=== PATIENT | male | born 1970 | race Two or more races ===

== ENCOUNTER 2019-09-13 21:41 | Emergency (ER) | payer MEDICAID ==
[~2019-09-13] VITALS: Ht 172.7 cm; Wt 108.9 kg
[2019-09-13] MEDS ORDERED: METFORMIN HCL500 M1 ORAL (21:54)
[2019-09-13] MEDS ORDERED: VALACYCLOVIR500 MG ORAL (22:03)
[2019-09-13] MEDS ORDERED: PREDNISONE20 MG ORAL (22:03)
--- NOTE | 2019-09-13 22:03 | Emergency Room Report ---
History of Present Illness General Chief Complaint: General Complaint Source: Patient Present Illness HPI Is a 49-year-old male with a history of diabetes. He presents with chief complaint of right facial drooping. Started yesterday. No pain. No focal deficit. No slurred speech. Similar symptom couple years ago on the left side. It resolved completely. He denies any other complaint. Nothing made it better. Nothing made it worse. Allergies: Coded Allergies: No Known Allergies (Unverified , 09/13/19) Patient History Past Medical History: see triage record, old chart reviewed, DM Past Surgical History: none Pertinent Family History: none Social History: Denies: smoking Immunizations: other Reviewed Nursing Documentation: PMH: Agreed; PSxH: Agreed Nursing Documentation-PMH Past Medical History: No History, Except For Hx Diabetes: Yes Review of Systems Eye: Denies: eye pain, blurred vision ENT: Denies: ear pain, nose congestion, throat swelling Respiratory: Denies: cough, shortness of breath Cardiovascular: Denies: chest pain, palpitations Gastrointestinal: Denies: abdominal pain, diarrhea, nausea, vomiting Musculoskeletal: Denies: back pain, joint pain Skin: Denies: rash Neurological: Reports: focal weakness; Denies: headache, numbness Endocrine: Denies: increased thirst, increased urine Hematologic/Lymphatic: Denies: easy bruising All Other Systems: negative except mentioned in HPI Physical Exam Vital Signs Date Time Temp Pulse Resp B/P (MAP) Pulse Ox O2 Delivery O2 Flow Rate FiO2 09/13/19 21:49 98.2 101 18 138/84 (102) 96 Room Air Vitals unremarkable Sp02 EP Interpretation: reviewed, normal General Appearance: well appearing, no apparent distress, alert Head: normocephalic, atraumatic Eyes: bilateral eye PERRL, bilateral eye EOMI ENT: hearing grossly normal, normal pharynx Neck: full range of motion, supple, no meningismus Respiratory: chest non-tender, lungs clear, normal breath sounds Cardiovascular #1: regular rate, rhythm, no murmur Gastrointestinal: normal bowel sounds, non tender, no mass, no organomegaly, no bruit, non-distended Musculoskeletal: back normal, normal range of motion, gait/station normal Neurologic: alert, oriented, facial droop - Right side. Involving forehead also. Psychiatric: mood/affect normal Medical Decision Making Diagnostic Impression: Primary Impression: Miller's palsy ER Course This patient presents with Miller's palsy. No evidence of CVA. Patient to monitor his blood sugar while on steroid. Last Vital Signs Date Time Temp Pulse Resp B/P (MAP) Pulse Ox O2 Delivery O2 Flow Rate FiO2 09/13/19 21:49 98.2 101 18 138/84 (102) 96 Room Air Status: improved Disposition: HOME, SELF-CARE Condition: Stable Scripts Valacyclovir Hcl* (VALTREX*) 500 Mg Tablet 1000 MG ORAL TID for 7 Days, TAB Prov: Warren Carias MD 09/13/19 Prednisone* (PREDNISONE*) 20 Mg Tablet 60 MG ORAL DAILY, #6 TAB Prov: Warren Carias MD 09/13/19 Additional Instructions: Check your sugar while taking prednisone. Follow-up in 7 days with your doctor. Use artificial tears. Tape down the right eyelid while sleeping. Return if worse. Warren Carias MD Sep 13, 2019 22:03
[2019-09-13 22:13] VITALS: BP 132/66
== END 2019-09-13 22:13 | disposition home or self-care (01) ==
LOC: EMR 21:55
DX: G51.0 Bell's palsy (principal); E11.9 Type 2 diabetes mellitus without complications
CPT/HCPCS: J7512; Z7502; 99282

== ENCOUNTER 2019-12-03 11:05 | Emergency (ER) | payer OTHER ==
[~2019-12-03] VITALS: Ht 172.7 cm; Wt 109.8 kg
[~2019-12-03 11:05] MED LIST: METFORMIN HCL500 M1 ORAL; PREDNISONE20 MG ORAL; VALACYCLOVIR500 MG ORAL
[2019-12-03 11:10] VITALS: BP 149/77
--- NOTE | 2019-12-03 11:10 | NUR ---
ED Nurse Note: Pt ambulated to ED d/t cough and runny nose x 1 week. Pt denies any recent travels or exposure to crowded places. VSS, on RA.
--- NOTE | 2019-12-03 11:25 | Emergency Room Report ---
History of Present Illness General Chief Complaint: Upper Respiratory Illness Source: Patient Present Illness HPI 49-year-old male, history of diabetes presents with cough, congestion x7 days no known aggravating relieving factor severity is mild, constant no fevers no chills no chest pain or shortness of breath patient presents for evaluation Allergies: Coded Allergies: No Known Allergies (Unverified , 09/13/19) Patient History Past Medical History: see triage record Reviewed Nursing Documentation: PMH: Agreed; PSxH: Agreed Nursing Documentation-PMH Past Medical History: No History, Except For Hx Diabetes: Yes Review of Systems All Other Systems: negative except mentioned in HPI Physical Exam Vital Signs Date Time Temp Pulse Resp B/P (MAP) Pulse Ox O2 Delivery O2 Flow Rate FiO2 12/03/19 11:08 97.9 73 16 149/77 (101) 100 Room Air Sp02 EP Interpretation: reviewed, normal General Appearance: well appearing, no apparent distress, alert Head: normocephalic, atraumatic Eyes: bilateral eye PERRL, bilateral eye EOMI ENT: uvula midline, moist mucus membranes, nasal congestion Neck: supple, thyroid normal, supple/symm/no masses Respiratory: lungs clear, no respiratory distress, no retraction, no accessory muscle use Cardiovascular #1: normal peripheral pulses, regular rate, rhythm, no edema, no gallop, no murmur Gastrointestinal: non tender, soft, no guarding, no rebound Musculoskeletal: normal inspection Neurologic: alert, oriented x3 Psychiatric: mood/affect normal Skin: no rash, warm/dry Medical Decision Making Diagnostic Impression: Primary Impression: Upper respiratory infection Qualified Codes: J06.9 - Acute upper respiratory infection, unspecified ER Course 49-year-old male presents most likely with an upper respiratory infection differential diagnosis includes pneumonia, influenza Reassurance provided to the patient chest x-ray negative disposition home with return precautions follow-up with PCP Chest X-Ray Diagnostic Results Chest X-Ray Diagnostic Results : Chest X-Ray Ordered: Yes # of Views/Limited/Complete: 1 View Indication: Other - Cough EP Interpretation: Yes Interpretation: no consolidation, no effusion, no pneumothorax, no acute cardiopulmonary disease Impression: No acute disease Electronically Signed by: Canelo White MD Last Vital Signs Date Time Temp Pulse Resp B/P (MAP) Pulse Ox O2 Delivery O2 Flow Rate FiO2 12/03/19 11:08 97.9 73 16 149/77 (545) 100 Room Air Disposition: HOME, SELF-CARE Condition: Stable Scripts Cetirizine Hcl* (ZYRTEC*) 10 Mg Tablet 10 MG ORAL DAILY PRN for congestion, #30 TAB 0 Refills Prov: Canelo White MD 12/03/19 Referrals: [facility] Patient Instructions: Upper Respiratory Infection, Adult Additional Instructions: The patient was provided with discharge instructions, notified to follow-up with a primary care doctor and or specialist in the next 24-48 hours, and to return to the ED if they have worsening of their symptoms. Please note that this report is being documented using [employer] technology. This can lead to erroneous entry secondary to incorrect interpretation by the dictating instrument. Canelo White MD Dec 03, 2019 11:25
[2019-12-03] MEDS ORDERED: ZYRTEC10 MG ORAL (11:27)
[2019-12-03 12:11] VITALS: BP 149/77
--- NOTE | 2019-12-03 12:11 | NUR ---
ER DISCHARGE NOTE: Patient is cleared to be discharged per ERMD, pt is aox4, on room air, with stable vital signs. pt was given dc and prescription instructions, pt was able to verbalize understanding, pt id band removed. pt is able to ambulate with steady gait. pt took all belongings.
--- NOTE | 2019-12-03 13:48 | Diagnostic Imaging Report ---
Indication: Cough Technique: One view of the chest Comparison: none Findings: Heart is enlarged. Lungs and pleural spaces are clear. Impression: Cardiomegaly. No acute process
== END 2019-12-03 12:11 | disposition home or self-care (01) ==
LOC: EMR 12:10
DX: J06.9 Acute upper respiratory infection, unspecified (principal); E11.9 Type 2 diabetes mellitus without complications
CPT/HCPCS: 71045; Z7502; 99283